=== PATIENT | female | born 1995 | race Caucasian/White ===

== ENCOUNTER 2016-12-12 03:29 | Emergency (ER) | payer OTHER ==
[~2016-12-12] VITALS: Ht 162.6 cm; Wt 64.5 kg
[2016-12-12 03:33] VITALS: TEMP 37; Ht 162.6 cm; Wt 64.5 kg
[2016-12-12 03:56] VITALS: O2SAT 98
[2016-12-12] MEDS ORDERED: SODIUM CHLORIDE 0.9% 1000ML 1,000 ML IV ONE (04:00)
[2016-12-12 04:02] LABS: BASO % 0.8 %; BASO ABS # 0.06 K/uL (0-0.2); COMPLETE YES; HEMATOCRIT 44.1 % (37-47); IG% 0.3 %; LYMPH % 20.7 %; LYMPH ABS # 1.57 K/uL (1.2-3.4); MEAN CELL VOLUME 89.5 fL (80-100); MEAN CORPUSCULAR HEMOGLOBIN 30.4 pg (25-34); MONO % 9.9 %; NEUT % 65.3 %; PLATELET COUNT 258 K/uL (130-400); RED BLOOD COUNT 4.93 M/uL (4.2-5.4)
[2016-12-12 04:16] LABS: POINT OF CARE TROPONIN I < 0.030 ng/ml (0-0.045)
[2016-12-12 04:23] LABS: BUN/CREATININE RATIO 19.6 (10-20); CALCIUM 9.4 mg/dl (8.5-10.1); CREATININE 0.89 mg/dl (0.60-1.20); POTASSIUM 3.9 mmol/L (3.5-5.1)
[2016-12-12 04:34] LABS: ALB/GLOB RATIO 1.1 (0.9-2); THYROID STIMULATING HORMONE 3.19 uIu/ml (0.300-4.500)
[2016-12-12 04:48] LABS: LYME DISEASE AB IGG NEG (NEG)
[2016-12-12 04:49] LABS: LYME DISEASE AB IGM NEG (NEG)
[2016-12-12 05:09] VITALS: BP 118/70; PULSE 78; O2SAT 98
--- NOTE | 2016-12-12 08:18 | DIAGNOSTIC IMAGING REPORT ---
CHEST 2 VIEWS ROUTINE CLINICAL HISTORY: Atypical chest pain and shortness of breath. COMPARISON STUDY: No previous studies for comparison. FINDINGS: The cardiac and mediastinal contours are normal. There is no evidence of focal pulmonary consolidation. There is no evidence of failure. No pleural effusions are visualized.[ There is a mild thoracic dextroscoliosis. IMPRESSION: No active disease in the chest. Electronically signed by: Jacob Dill M.D. 12/12/2016 8:17 AM Dictated Date/Time: 12/12/2016 8:16 AM
--- NOTE | 2016-12-13 01:32 | EMERGENCY ROOM VISIT NOTE ---
History First contact with patient: 03:37 Chief Complaint: CARDIAC ASSESSMENT Stated Complaint: WOKE UP WITH TIGHT CHEST,LT ARM PAIN/NUMB Nursing Triage Summary: pt reports that she woke up at 0130 and was SOB. pt also had tightness in chest and pain in left arm. hx heart murmur. History of Present Illness The patient is a 21 year old female who presents to the Emergency Room with complaints of central and left-sided chest pain with numbness into her hands and fingers when she woke up around 2 hours ago. The patient states that when she woke up she felt that it was difficult to breathe. Her symptoms have slowly improved over these past 2 hours, and she currently is without symptoms. The patient is not diabetic. She does not report recent travel history. She considers herself usually healthy. She rates her discomfort a 1/10 currently. Review of Systems More than 10 systems were reviewed and otherwise negative with the exception of history of present illness. Past Medical/Surgical History No chronic medical disease Family History No pertinent family history Social History Smoking Status: Never Smoker Housing Status: lives with family Current/Historical Medications No Active Prescriptions or Reported Meds Physical Exam Vital Signs Date Time Temp Pulse Resp B/P (MAP) Pulse Ox O2 Delivery O2 Flow Rate FiO2 12/12/16 05:09 78 20 118/70 98 12/12/16 04:35 65 12/12/16 03:56 98 Room Air 12/12/16 03:40 98 Room Air 12/12/16 03:33 37.0 78 18 123/75 98 Room Air Pain Rating (0-10): 2.0 Physical Exam VITALS: Vitals are noted on the nurse's note and reviewed by myself. Vital signs stable. GENERAL: Well-developed, well-nourished, white female, who is in no acute distress and resting comfortably. Patient is cooperative with the examination. HEAD: Normocephalic atraumatic. EARS: External ear normal. External auditory canals clear, tympanic membranes pearly lopez without erythema or effusion bilaterally. EYES: Pupils equal round and reactive to light and accommodation. Conjunctivae without injection, sclerae without icterus. Extraocular movements intact. NOSE: Patent, turbinates without inflammation or discharge. MOUTH: Mucous membranes moist. Tonsils are not enlarged. Pharynx without erythema, blood, or exudate. Uvula midline. Airway patent. NECK: Supple without nuchal rigidity. No lymphadenopathy. No thyromegaly. Cervical spine is nontender. HEART: Regular rate and rhythm without murmurs gallops or rubs. LUNGS: Clear to auscultation bilaterally without wheezes, rales or rhonchi. No retractions or accessory muscle use. ABDOMEN: Positive normal bowel sounds x 4. Soft, nontender, without masses or organomegaly. No guarding or rebound tenderness. MUSCULOSKELETAL: No muscle atrophy, erythema, or edema noted. Full range of motion without joint tenderness in all extremities. No tenderness to palpation. Normal gait. Strength 5/5 throughout. NEURO: Patient was alert and oriented to person place and time. CN II through XII grossly intact. Deep tendon reflexes 2+ throughout. No focal neurological deficits SKIN: The skin was without rashes, erythema, edema, or bruising. Capillary reflex less than 2 seconds. Medical Decision & Procedures ER Provider Diagnostic Interpretation: CHEST 2 VIEWS ROUTINE CLINICAL HISTORY: Atypical chest pain and shortness of breath. COMPARISON STUDY: No previous studies for comparison. FINDINGS: The cardiac and mediastinal contours are normal. There is no evidence of focal pulmonary consolidation. There is no evidence of failure. No pleural effusions are visualized.[ There is a mild thoracic dextroscoliosis. IMPRESSION: No active disease in the chest. Laboratory Results 12/12/16 03:50 Red Blood Count 4.93, Mean Corpuscular Volume 89.5, Mean Corpuscular Hemoglobin 30.4, Mean Corpuscular Hemoglobin Concent 34.0, Mean Platelet Volume 9.0, Neutrophils (%) (Auto) 65.3, Lymphocytes (%) (Auto) 20.7, Monocytes (%) (Auto) 9.9, Eosinophils (%) (Auto) 3.0, Basophils (%) (Auto) 0.8, Neutrophils # (Auto) 4.97, Lymphocytes # (Auto) 1.57, Monocytes # (Auto) 0.75, Eosinophils # (Auto) 0.23, Basophils # (Auto) 0.06 12/12/16 03:50 Test 12/12/16 03:50 12/12/16 03:56 White Blood Count 7.60 K/uL (4.8-10.8) Red Blood Count 4.93 M/uL (4.2-5.4) Hemoglobin 15.0 g/dL (12.0-16.0) Hematocrit 44.1 % (37-47) Mean Corpuscular Volume 89.5 fL (80-100) Mean Corpuscular Hemoglobin 30.4 pg (25-34) Mean Corpuscular Hemoglobin Concent 34.0 g/dl (32-36) Platelet Count 258 K/uL (130-400) Mean Platelet Volume 9.0 fL (7.4-10.4) Neutrophils (%) (Auto) 65.3 % Lymphocytes (%) (Auto) 20.7 % Monocytes (%) (Auto) 9.9 % Eosinophils (%) (Auto) 3.0 % Basophils (%) (Auto) 0.8 % Neutrophils # (Auto) 4.97 K/uL (1.4-6.5) Lymphocytes # (Auto) 1.57 K/uL (1.2-3.4) Monocytes # (Auto) 0.75 K/uL (0.11-0.59) Eosinophils # (Auto) 0.23 K/uL (0-0.5) Basophils # (Auto) 0.06 K/uL (0-0.2) RDW Standard Deviation 39.3 fL (36.4-46.3) RDW Coefficient of Variation 12.0 % (11.5-14.5) Immature Granulocyte % (Auto) 0.3 % Immature Granulocyte # (Auto) 0.02 K/uL (0.00-0.02) Anion Gap 7.0 mmol/L (3-11) Est Creatinine Clear Calc Drug Dose 87.1 ml/min Estimated GFR () 108.1 Estimated GFR (Non- 93.3 BUN/Creatinine Ratio 19.6 (10-20) Calcium Level 9.4 mg/dl (8.5-10.1) Total Bilirubin 0.4 mg/dl (0.2-1) Aspartate Amino Transf (AST/SGOT) 13 U/L (15-37) Alanine Aminotransferase (ALT/SGPT) 21 U/L (12-78) Alkaline Phosphatase 73 U/L (45-117) Total Protein 8.0 gm/dl (6.4-8.2) Albumin 4.1 gm/dl (3.4-5.0) Globulin 3.9 gm/dl (2.5-4.0) Albumin/Globulin Ratio 1.1 (0.9-2) Lipase 127 U/L (73-393) Thyroid Stimulating Hormone (TSH) 3.190 uIu/ml (0.300-4.500) Lyme Disease IgG Antibody NEG (NEG) Lyme Disease IgM Antibody NEG (NEG) Bedside D-Dimer 168 ng/mlFEU (0-450) Bedside Troponin I < 0.030 ng/ml (0-0.045) Medications Administered Medications (Trade) Dose Ordered Sig/Chelo Route Start Time Stop Time Status Last Admin Dose Admin Sodium Chloride 1,000 ml @ 999 mls/hr Q1H1M ONCE IV 12/12/16 04:00 12/12/16 05:00 DC 12/12/16 04:00 999 MLS/HR ECG Change: Normal sinus rhythm @70 bpm RSR' or QR pattern in V1 suggests right ventricular conduction delay Otherwise Normal ECG No previous ECGs available Confirmed by URSULA REBOLLAR ([id number]) on 12/12/2016 10:54:34 AM ED Course Physical exam and history were performed. Nursing notes, EMR, and Medication List were personally reviewed. Patient appears to have chest pain symptoms that began around 2 hours ago and have significantly improved. IV access was established and labs were obtained. The patient was hydrated with normal saline. EKG was normal sinus rhythm at 70 beats rhythm without acute ST elevation or ischemia. Chest x-ray was performed. 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 The patient's blood work is as above and was reviewed. She does not have a significantly elevated white blood cell count or gross anemia, bandemia, or significant electrolyte imbalance. Lipase and transaminases are nondiagnostic. Troponin and d-dimer 1 are negative. TSH showed euthyroid state. Lyme was negative. Chest x-ray was without acute process. Patient was in normal sinus rhythm on the trimmer and borer machine operator. The patient and I had a lengthy discussion with her regarding options of care. The patient remained in stable condition throughout her ER stay. I suspect that her symptoms could be related to GERD or possibly stress/anxiety. Overall recommended that she follow with her primary care physician in the next few days for recheck. She is otherwise medically back to ER with any new, worsening , or concerning symptoms. The chart was completed utilizing [employer] Voice Recognition Software. Grammatical errors, random word insertions, pronoun errors, and incomplete sentences are an occasional consequence of this system due to software limitations, ambient noise, and hardware issues. Any formal questions or concerns about the content, text, or information contained within the body of this dictation should be directly addressed to the provider for clarification. . Medical Decision Differential diagnosis includes, but is not limited to: Myocardial infarction, dysrhythmia, pericarditis, pneumothorax, aortic aneurysm/dissection, DVT/PE, anxiety, GERD, PUD, electrolyte imbalance, thyroid disorder, pneumonia, bronchitis, pancreatitis, and others [place] Drug Monitoring Program Search Results: no issues identified Medication Reconcilliation Current Medication List: was personally reviewed by me Blood Pressure Screening Patient's blood pressure: Normal blood pressure Impression Primary Impression: Non-cardiac chest pain Departure Information Dispostion Home / Self-Care Condition GOOD Prescriptions No Active Prescriptions or Reported Meds Forms IMPORTANT VISIT INFORMATION Patient Instructions My [facility] Additional Instructions You were seen and evaluated today on an emergency basis only. This is not a substitute for, or an effort to provide, complete comprehensive medical care. It is not possible to recognize and treat all injuries or illnesses in a single emergency department visit. For this reason it is recommended that you followup with your primary care physician in the next 1-2 days for recheck of your condition. For baseline pain relief you may alternate ibuprofen and acetaminophen every 4 hours for pain control. Take 600 mg ibuprofen (Advil) and then 4 hours later take 1000 mg acetaminophen (Tylenol). Do not take more than 3000 mg acetaminophen in a single day. Drink plenty of fluids and remain well hydrated. You are welcome to return to the emergency department anytime with new, worsening, or concerning symptoms.
== END 2016-12-12 05:09 | disposition home or self-care (01) ==
LOC: C.EDB 03:29 → C.EDA 05:09
DX: R07.89 Other chest pain (principal)